=== PATIENT | female | born 1955 | race Caucasian/White ===

== ENCOUNTER 2019-09-11 10:53 | Outpatient (CLI) | payer MEDICARE ==
[~2019-09-11] VITALS: Ht 157.5 cm; Wt 89.1 kg
--- NOTE | ~2019-09-11 | HEMODYNAMI ---
PATIENT:ESTEFANI FITZGERALD MEDICAL RECORD: [id number] : 53 LOCATION:[facility] ADMISSION DATE: 09/11/19 Generatedon:09/11/201914:33 Patient name: ESTEFANI FITZGERALD Patient #: [id number] SSN: : 1955 Date of study: 09/11/2019 Page: Of Hemodynamic Procedure Report Patient Data Patient Demographics Procedure consent was obtained First Name: ESTEFANI Gender: Female Last Name: AMILCAR : 1955 Patient #: [id number] Age: 64 year(s) Race: Unknown Additional ID: [id number] Contact details [address]: [address] [place] [address] nw State: [place] City: [place] Zip code: [address] Past Medical History Allergies Allergen Reaction Date Comments Reported Other allergy 09/11/2019 NO KNOWN Admission Admission Data Admission Date: 09/11/2019 Admission Time: 10:53 Arrival Date: 09/11/2019 Arrival Time: 0:00 Insurance Payor: Medicare Height (in.): 61.81 BSA: 1.89 (m2) Height (cm.): 157 BMI: 36.11 (kg/m2) Weight (lbs.): 196.21 Weight (kg.): 89 Lab Results Lab Result Date: 09/11/2019 Lab Result Time: 0:00 Biochemistry Name Units Result Min Max BUN mg/dl 12 --(-*--)-- 7 18 Creatinine mg/dl 0.9 --(-*--)-- 0.6 1.3 eGFR ml/min 67.46562 *-(----)-- 90 120 NONAFRICAN CBC Name Units Result Min Max Hematocrit % 46.9 --(-*--)-- 42 54 Hemoglobin g/dl 15.6 --(--*-)-- 13.5 17.5 Procedure Procedure Types Cath Procedure Diagnostic Procedure [facility] w/Coronaries FFR/IVUS FFR Initial Sedation Charges Moderate Sedation up to 30 minutes Procedure Description Procedure Date Procedure Date: 09/11/2019 Procedure Start Time: 13:51 Procedure End Time: 14:31 Procedure Staff Name Function Jeevan Camacho MD Performing Physician Linda Diaz RT Monitor Cindy Bush RN Nurse Radha Thomas RT Scrub Procedure Data Cath Procedure Fluoroscopy Diagnostic fluoroscopy Total fluoroscopy Time: 7.6 time: 7.6 min min Diagnostic fluoroscopy Total fluoroscopy dose: dose: 1513 mGy 1513 mGy Contrast Material Contrast Material Type Amount (ml) Isovue 300 136 Entry Location Entry Primary Successful Side Size Upsize Upsize Entry Closure [place] ccessful Closure Location (Fr) 1 (Fr) 2 (Fr) Remarks Device Remarks Radial Right 6 Fr Mechanical artery Short Compression Estimated blood loss: 10 ml Diagnostic catheters Device Type Used For End Catheter Placement DIAGNOSTIC [place] 110cm 5 Procedure Fr catheter ([id number]) Procedure Complications No complications Procedure Medications Medication Administration Route Dosage 0.9% NaCl I.V. 100 ml/hr Oxygen etCO2 Nasal cannula 2 l/min Lidocaine 2% added to field 20 Heparin Flush Bag added to field 2 bags (1000units/500ml NS) Versed I.V. 2 mg Fentanyl I.V. 50 mcg Fentanyl I.V. 50 mcg Heparin Bolus I.V. 4000 units Hemodynamics Rest BSA: 1.89 (m2) O2 Consumption: Estimated: 179.38 (ml/min) O2 Consumption indexed : Estimated:94.91 (ml/min/m) Heart Rate: 74 (bpm) Pressure Samples Time Site Value (mmHg) Purpose Heart Use Rate(bpm) 13:54 LV 144/0,18 Snapshot 78 Gradients Valve Time Site Site Mean SEP/DFP Peak To Heart Use 1 2 (mmHg) (sec/min) Peak Rate (mmHg) (bpm) Aortic 13:55 LV AO 59 Snapshots Pre Cath Intra NCS Post Cath Vital Signs Time Heart Resp SPO2 etCO2 NIBP (mmHg) Rhythm Pain Sedation Rate (ipm) (%) (mmHg) Status Level (bpm) 13:33:30 72 13 97 48.6 171/125(152) NSR 0 (11) 10(A) , No pain 13:38:23 66 19 100 51.7 135/45(71) NSR 0 (11) 10(A) , No pain 13:42:58 72 21 97 52.4 108/40(67) NSR 0 (11) 10(A) , No pain 13:47:42 74 15 96 52.4 121/40(76) NSR 0 (11) 10(A) , No pain 13:52:33 70 14 97 23.2 105/38(65) NSR 0 (11) 10(A) , No pain 13:57:32 81 12 98 48.6 Measuring NSR 0 (11) 10(A) , No pain 13:58:34 83 17 98 46.4 145/51(92) NSR 0 (11) 10(A) , No pain 14:03:27 82 16 94 48.6 157/49(84) NSR 0 (11) 10(A) , No pain 14:08:26 80 16 96 38.1 Measuring NSR 0 (11) 10(A) , No pain 14:08:30 80 18 96 38.1 136/44(94) NSR 0 (11) 10(A) , No pain 14:13:29 77 20 97 49.4 Measuring NSR 0 (11) 10(A) , No pain 14:14:53 77 19 96 55.3 172/83(119) NSR 0 (11) 10(A) , No pain 14:24:04 74 36 96 51.6 Measuring NSR 0 (11) 10(A) , No pain 14:25:28 71 16 91 55.3 Time NSR 0 (11) 10(A) Exceeded , No pain 14:29:44 70 12 51.6 No Cuff NSR 0 (11) 10(A) , No pain Medications Time Medication Route Dose Verified Delivered Reason Notes Effectiveness by by 13:31:57 0.9% NaCl I.V. 100 Jeevan Cindy used for ml/hr Doug Bush software sales executive 13:32:08 Oxygen etCO2 2 Jeevan Cindy used for Nasal l/min Doug Bush procedure cannula RN 13:36:26 Lidocaine 2% added 20ml Jeevan Jeevan for local to vial Doug Camacho MD anesthetic field 13:36:31 Heparin Flush added 2 Jeevan Jeevan used for Bag to bags Doug Camacho MD procedure (1000units/500ml field NS) 13:47:06 Versed I.V. 2 mg Jeevan Cindy for sedation Doug Bush RN 13:48:14 Fentanyl I.V. 50 Jeevan Cindy for sedation mcg Doug Bush RN 13:54:22 Fentanyl I.V. 50 Jeevan Cindy for sedation mcg Doug Bush RN 14:03:32 Heparin Bolus I.V. 4000 Jeevan Cindy for verif ied units Doug Bush anticoagulation with Dr. RUTH Camacho Procedure Log Time Note 12:24:47 Informed consent obtained and on chart 12:30:29 Arrival Date: 09/11/2019 12:00:00 AM 12:33:49 Patient Height : 61.81 inches 12:33:54 Patient Weight : 196.21 lbs 12:34:04 Insurance Payor : Medicare 12:37:12 Lab Result : Hematocrit 46.9 % 12:37:12 Lab Result : eGFR NONAFRICAN 67.87580 ml/min 12:37:12 Lab Result : Hemoglobin 15.6 g/dl 12:37:12 Lab Result : BUN 12 mg/dl 12:37:12 Lab Result : Creatinine 0.9 mg/dl 12:40:05 Patient allergic to Other allergyNO KNOWN 12:40:21 Stress Test: yes; abnormal UNKNOWN 12:40:26 Risk of Mortality: 0.1 12:40:30 Risk of blood transfusion: 0.1 12:40:35 Risk of OBDULIA: 0.9 12:40:45 Lab results completed and on chart. 12:40:59 Procedure Status Elective Heart Cath (OP). 12:41:08 ACC Patient presents with Stable Angina CCS Anginal Class 2--Slight limitation of ordinary activity. 12:41:13 Time tracking: Regular hours (M-F 7:00 - 5:00) 12:50:10 H&P Date Dictated: 09/11/2019 H&P Addendum completed by physician on day of procedure. (MUST COMPLETE FOR ALL OUTPATIENTS), New H&P dictated by physician.. 13:11:23 Linda LOPEZ(R) (CV) sent for patient. Start room use. 13:22:32 Patient received from Pre/Post Procedure Room to CCL 1 Alert and oriented. Tansferred to table in Supine position. 13:22:34 Warm blankets applied, and maia hugger turned on for patient comfort. 13:22:34 Correct patient and procedure confirmed by team. 13:22:35 ECG and BP/O2 sat monitors applied to patient. 13:22:56 Plan of Care:Hemodynamics will remain stable., Cardiac rhythm will remain stable., Comfort level will be maintained., Respiratory function will remain adequate., Patient/ family verbilizes understanding of procedure., Procedure tolerated without complication., Recovers from procedure without complications.. 13:23:09 Patient NPO since Midnight. 13:23:12 Family in patients room. 13:23:13 Pre-procedure instructions explained to patient. 13:23:14 Pre-op teaching completed and patient verbalized understanding. 13:23:25 Is patient on blood thinner?Yes 13:23:30 ACC The patient was administered the following blood thiners within the last 24 hours: ACCPlavix 13:23:33 Patient diabetic? Yes. 13:23:40 If diabetic: On Metformin? Yes 13:24:01 If on Metformin: Last Dose? 09/09/2019 13:24:04 - 13:24:05 ----Pre-sedation anethsthesia assessment.---- 13:24:09 Previous problem with sedation/anesthesia? No ? 13:24:12 Snore? Yes 13:24:15 Sleep apnea? Yes 13:24:18 Deviated septum? Unknown 13:24:20 Opens mouth fully? Yes 13:24:23 Sticks out tongue? Yes 13:24:41 Airway obstruction? Yes COPD/SLEEP APNEA/SLEEPS WITH CPAP 13:24:46 Dentures? No ? 13:31:47 Vital chart was started 13:31:57 0.9% NaCl 100 ml/hr I.V. was administered by Cindy Bush RN; used for procedure; Verbal order read back and verified. 13:32:08 Oxygen 2 l/min etCO2 Nasal cannula was administered by Cindy Bush RN ; used for procedure; Verbal order read back and verified. 13:36:26 Lidocaine 2% 20ml vial added to field was administered by Jeevan Camacho MD ; for local anesthetic; Verbal order read back and verified. 13:36:31 Heparin Flush Bag (1000units/500ml NS) 2 bags added to field was administered by Jeevan Camacho MD; used for procedure; Verbal order read back and verified. 13:45:47 Pre procedure: right dorsailis pedis pulse 1+ Palpable, but thready & weak; easily obliterated 13:46:03 IV patent on arrival in left wrist with 0.9% NaCl at [facility]. 13:46:15 Right Radial & Right Groin area was prepped with chlora-prep and draped in sterile fashion 13:46:17 Alarms reviewed by R. N. 13:46:18 Sharps counted by scrub and verified by R.N. 13:46:22 Physician arrived 13:46:28 --------ALL STOP TIME OUT------ 13:46:30 Final Timeout: patient, procedure, and site verified with staff and physician. All members of the team are in agreement. 13:46:33 Right Radial & Right Groin site verified by team. 13:46:39 Fire Safety Assessment: A--An alcohol-based skin anteseptic being used preoperatively., C--Open oxygen or nitrous oxide is being used., D--An ESU, laser, or fiber-optic light is being used. 13:46:45 Physical assessment completed. ASA score P 2 - A patient with mild systemic disease as per Jeevan Camacho MD. 13:46:53 2) 60-89 Mildly reduced kidney function, and other findings (as for stage 1) point to kidney disease. 13:46:58 Maximum allowable contrast dose (3.7 X eGFR X 0.75)186 ml. 13:47:04 Sedation plan: IV Moderate Sedation Medication:Versed, Fentanyl 13:47:06 Versed 2 mg I.V. was administered by Cindy Bush RN; for sedation; Verbal order read back and verified. 13:47:09 Use device set Radial Dx or PCI 13:47:12 ACIST Syringe (43975) opened to sterile field. 13:47:14 Medline Cath Pack ([id number]) opened to sterile field. 13:47:16 Bag Decanter (2002) opened to sterile field. 13:47:18 ACIST Hand Control (26801) opened to sterile field. 13:47:18 ACIST Manifold (69489) opened to sterile field. 13:47:20 MBrace Wrist Support ([id number]) opened to sterile field. 13:47:20 NEEDLE Cook 21G 4cm Radial (D66488) opened to sterile field. 13:47:22 EMERALD Guide Wire (502-463) opened to sterile field. 13:47:23 SHEATH 6FR RAIN (0440137) opened to sterile field. 13:47:28 Zero performed for pressure channel P1 13:47:41 Baseline sample Acquired. 13:47:55 Rhythm: sinus rhythm 13:47:58 Full Disclosure recording started 13:48:14 Fentanyl 50 mcg I.V. was administered by Cindy Bush RN; for sedation ; Verbal order read back and verified. 13:51:06 Procedure started. 13:51:17 Local anesthetic to right radial artery with Lidocaine 2% by Jeevan Camacho MD.INITIAL ACCESS ONLY 13:53:18 A 6 Fr Short sheath was inserted into the Right Radial artery 13:53:53 A DIAGNOSTIC [place] 110cm 5 Fr catheter (886127) was advanced over the wire and used for Procedure. 13:54:22 Fentanyl 50 mcg I.V. was administered by Cindy Bush RN; for sedation ; Verbal order read back and verified. 13:54:26 Injector settings: Ml/sec: 5, Volume: 15, 13:54:33 LV gram done using AMOS 13:55:30 LV hemodynamics recorded. 13:55:37 EF : 55 % 13:55:52 LCA angiography performed. 13:55:56 Injector settings: Ml/sec: 3, Volume: 6, 13:58:25 RCA angiography performed. 13:58:29 Injector settings: Ml/sec: 3, Volume: 6, 14:01:15 Proceeding to intervention. 14:01:32 Reading Verrata Plus pressure wire (24756W) opened to sterile field. 14:01:53 TUBING High Pressure Extension Tubing (Doug) ([id number]) opened to sterile field. 14:02:47 FFR/IFR wire advanced. 14:03:32 Heparin Bolus 4000 units I.V. was administered by Cindy Bush RN; for anticoagulation; verified with Dr. Camacho Verbal order read back and verified. 14:04:52 Wire advanced across lesion. 14:05:15 Wire removed. damaged. 14:06:53 CATHETER AND IFR WIRE REMOVED. 14:08:30 GUIDE 6FR XBLAD 3.5 catheter ([id number]) opened to sterile field. 14:08:44 Reading Verrata Plus pressure wire (81078A) opened to sterile field. 14:08:56 6 Fr XBLAD3.5 guide catheter was inserted over the wire 14:11:25 FFR/IFR wire advanced. 14:11:28 Wire advanced across lesion. 14:13:01 pCirc lesion measured at 1.0 with IFR 14:13:45 THE IFR WIRE IS REDIRECTED INTO THE LAD. 14:16:56 dLAD lesion measured at 0.87 with IFR 14:20:33 Wire removed. 14:20:35 Guide catheter removed. 14:20:51 Sheath removed intact; hemostasis achieved with Mechanical Compression to the Right Radial artery. 14:20:53 ZEPHYR LARGE TR BAND (668075) opened to sterile field. 14:20:53 Procedure ended.(Physican Out) 14:21:13 Contrast amount:Isovue 300 136ml. 14:21:23 Fluoroscopy time 07.60 minutes. 14:21:30 Fluoroscopy dose: 1513 mGy 14:21:30 Flurop Dose total: 1513 14:21:40 Dose Area Product 33215 mGy/cm. 14:22:25 Maximum allowable dose exceeded? No. 14:22:26 Sharps counted by scrub and verified by R.N. 14:22:30 [place] band inflated with 10cc of air. 14:22:32 Insertion/operative site no bleeding no hematoma. 14:22:39 Post right radial artery:stable 14:22:50 Post-procedure physical assessment completed. ASA score P 2 - A patient with mild systemic disease as per Jeevan Camacho MD. 14:22:55 Post procedure rhythm: unchanged. 14:22:59 Estimated blood loss: 10 ml 14:23:07 Post procedure instruction explained to patient.Patient verbalizes understanding. 14:23:08 Patient needs reinforcement of post procedure teaching. 14:23:14 ACT drawn and resulted at 206 seconds. (normal therapeutic range 180-24 0 seconds). 14:25:33 Procedure type changed to Cath procedure, Diagnostic procedure, LHC, LH C w/Coronaries, FFR/IVUS, FFR Initial, Sedation Charges, Moderate Sedation up to 30 minutes 14:25:36 Procedure and supply charges have been captured, reviewed, submitted an d are correct. 14:29:06 Procedure Complication : No complications 14:29:11 Vital chart was stopped 14:31:15 [facility] Findings: MVD- MD will discuss options w/ pt 14:31:18 Operative report dictated upon procedure completion. 14:31:19 See physician's report for complete and final results. 14:31:22 Report given to Pre/Post Procedure Room. 14:31:27 Patient transfered to Pre/Post Procedure Room with Stretcher. 14:31:30 Procedure ended. 14:31:30 Full Disclosure recording stopped 14:31:39 End room use (Document Last) Device Usage Item Name Manufacture Quantity Catalog Hospital Part Current Mini mal Lot# / Number Charge Number Stock Stock Serial# Code ACIST Acist 1 02516 762160 920983 612134 20 Syringe Medical (91240) Systems Inc Medline Medline 1 [id number] 971772 01795 301687 5 Cath Pack ([id number]) Bag Microtek 1 2001S 225608 86263 249668 5 Decanter Medical Inc. () ACIST Hand Acist 1 45436 181307 418492 466697 5 Control Medical (53415) Systems Inc ACIST Acist 1 40971 758890 306762 820942 5 Manifold Medical (25625) Systems Inc MBrace Advanced 1 140-0250-00 068365 05837 984923 5 Wrist Vascular Support Dynamics ([id number]) NEEDLE Cook Cook Medical 1 [id number] 961326 173190 090473 5 21G 4cm Radial (G97794) EMERALD Cardinal 1 502-455 302070 646244 939035 5 Guide Wire Health (502-455) SHEATH 6FR Cardinal 1 [id number] 016563 4604470 435247 5 [facility] (4081919) DIAGNOSTIC Terumo 1 40-1514 004822 633615 338280 5 [place] 110cm 5 Fr catheter (392941) Reading Reading 2 [id number] 831577 610290682 447894 5 Verrata Plus pressure wire (50696M) TUBING High Merit 1 [id number] 373535 90522 348014 10 Pressure Medical Extension Tubing (Camacho) ([id number]) GUIDE 6FR Cardinal 1 [id number] 622541 709741 140389 10 XBLAD 3.5 Health catheter (22182938) ZEPHYR Cardinal 1 009603 756763 1808627 460620 5 LARGE TR Health BAND (363989) Signature Audit Railroad Stage Time Signature Unsigned Intra-Procedure 09/11/2019 Linda 2:32:14 PM Emily RT(R) (CV) Intra-Procedure 09/11/2019 Cindy Bush 2:32:39 PM RN Intra-Procedure 09/11/2019 Jeevan Camacho MD 2:33:28 PM [facility] [address] [place] [address]
[2019-09-11] MEDS ORDERED: XANAX1 MG PO (11:36)
[2019-09-11] MEDS ORDERED: ULTRAM50 MG PO (11:36)
[2019-09-11] MEDS ORDERED: ZANAFLEX4 MG PO (11:37)
[2019-09-11] MEDS ORDERED: HCTZ25 MG PO (11:38)
[2019-09-11] MEDS ORDERED: SPIRIVA18 MCG INH (11:38)
[2019-09-11] MEDS ORDERED: NITROQUICK0.4 MG SL (11:39)
[2019-09-11] MEDS ORDERED: PROAIR HFA8.5 G1 INH (11:39)
[2019-09-11] MEDS ORDERED: DIOVAN160 MG PO (11:42)
[2019-09-11] MEDS ORDERED: LIVALO4 MG PO (11:43)
[2019-09-11] MEDS ORDERED: K-TAB10 MEQ PO (11:44)
[2019-09-11] MEDS ORDERED: BUSPAR 15 MG TA15 MG PO (11:44)
[2019-09-11] MEDS ORDERED: PROZAC40 MG PO (11:44)
[2019-09-11] MEDS ORDERED: GLUCOPHAGE500 MG PO (11:45)
[2019-09-11] MEDS ORDERED: PLAVIX75 MG PO (11:45)
[2019-09-11] MEDS ORDERED: PROTONIX40 MG PO (11:45)
[2019-09-11] MEDS ORDERED: METOPROLOL TART50 MG PO (11:46)
[2019-09-11 11:57] VITALS: BP 152/61; Ht 157.5 cm; Wt 89.1 kg
[2019-09-11 12:18] LABS: BASOPHILS 0.3 % (0-2); EOSINOPHILS 2.6 % (0-7); HEMATOCRIT 46.9 % (36.0-48.0); HEMOGLOBIN 15.6 g/dL (12-16); IMMATURE GRANULOCYTES 0.3 % (0-5); LYMPHOCYTES 22.7 % (15-50); MCH 31.3 pg (26.0-34.0); MCHC 33.3 g/dL (31.0-37.0); MCV 94.2 fL (80.0-100.0); MONOCYTES 9.5 % (2-11); NEUTROPHILS 64.6 % (40-80); PLATELET COUNT 217 10x3/uL (130-400); RBC 4.98 10x6/uL (4.00-5.40); RDW 14.7 % (11.5-14.5); WBC 7.2 10x3/uL (4.8-10.8)
[2019-09-11 12:27] LABS: ANION GAP 17.1 mmol/L (8-16); CALCIUM 9.7 mg/dL (8.5-10.1); CARBON DIOXIDE 29.8 mmol/L (21.0-32.0); CHOL - HDL RATIO 3.2 ratio (2.3-4.1); CREATININE - SERUM 0.9 mg/dL (0.6-1.3); LDL-HDL RATIO 1.6 ratio (1.5-3.5); POTASSIUM - SERUM 3.9 mmol/L (3.5-5.1)
--- NOTE | 2019-09-11 14:40 | NUR ---
PT REC'D TO ROOM 6 VIA STRETCHER FROM INDUSTRIAL DESIGNER. MONITORS ESTAB. SON AT BS. SEE NANOTECHNOLOGIST, ALARMS ON AND C/L IN REACH.
--- NOTE | 2019-09-11 14:55 | NUR ---
R WRIST Z BAND SITE C/D/I, NO S/S BLEEDING OR HEMATOMA. R ARM/HAND WARM WITH PALP PULSES AND BRISK CAP REFILL. VSS. PT DENIES NEEDS. ALARMS ON AND C/L IN REACH.
--- NOTE | 2019-09-11 15:15 | NUR ---
DR RANDLE IN TO UPDATE PT AND HER SON.
--- NOTE | 2019-09-11 15:25 | NUR ---
PT SITTING UP IN BED, EATING. VSS. R WRIST SITE C/D/I, NO S/S BLEEDING OR SWELLING.
--- NOTE | 2019-09-11 15:40 | NUR ---
R WRIST SITE C/D/I, NO S/S BLEEDING OR SWELLING. VSS. PT RESTING QUIETLY. C/L IN REACH.
--- NOTE | 2019-09-11 16:00 | NUR ---
5 CC AIR REMOVED FROM Z BAND, NO S/S BLEEDING OR SWELLING, PULSES PALP. BRISK CAP REFILL. VSS, C/L IN REACH.
--- NOTE | 2019-09-11 16:10 | NUR ---
R WRIST SITE C/D/I, NO S/S BLEEDING OR SWELLING. VSS, C/L IN REACH.
--- NOTE | 2019-09-11 16:40 | NUR ---
5 CC AIR REMOVED FROM Z BAND, NO S/S BLEEDING OR HEMATOMA. VSS. WILL CONT CLOSE MONITORING.
--- NOTE | 2019-09-11 17:00 | NUR ---
ALL AIR REMOVED FROM Z BAND, NO S/S BLEEDING OR SWELLING. R HAND WARM, PULSES PALP. WILL CONT CLOSE MONITORING.
--- NOTE | 2019-09-11 17:15 | NUR ---
R WRIST SITE C/D/I, NO S/S BLEEDING OR HEMATOMA. PIV D/C'D INTACT, DSG APPLIED. PT ALLOWED TO GET DRESSED AND GO TO BR INDEPENDENTLY.
--- NOTE | 2019-09-11 17:57 | NUR ---
ALL DISCHARGE INSTRUCTIONS REVIEWED WITH PT AND SON, INCLUDING RESTRICTIONS, MEDS AND F/U APPT. Z BAND OFF AND DSG APPLIED, ARM BOARD IN PLACE. PT D/C'D VIA TO PRIVATE VEHICLE. PT HAS ALL PAPERWORK AND BELONGINGS.
== END 2019-09-11 17:30 | disposition home or self-care (01) ==
LOC: D.CATH 10:53
PROVIDERS: ATTEND Internal Medicine Cardiovascular Disease
DX: I25.119 Atherosclerotic heart disease of native coronary artery with unspecified angina pectoris (principal); R94.39 Abnormal result of other cardiovascular function study; J44.9 Chronic obstructive pulmonary disease, unspecified; E11.9 Type 2 diabetes mellitus without complications; I10 Essential (primary) hypertension; E78.5 Hyperlipidemia, unspecified; Z79.84 Long term (current) use of oral hypoglycemic drugs

== ENCOUNTER 2019-09-27 07:44 | Day surgery (SDC) | payer MEDICARE ==
[~2019-09-27] VITALS: Ht 157.5 cm; Wt 132.0 kg
--- NOTE | ~2019-09-27 | HEMODYNAMI ---
PATIENT:ESTEFANI FITZGERALD MEDICAL RECORD: [id number] : 53 LOCATION:[facility] ADMISSION DATE: 09/27/19 Generatedon:09/27/20199:37 Patient name: ESTEFANI FITZGERALD Patient #: [id number] SSN: [id number] : 1955 Date of study: 09/27/2019 Page: Of Hemodynamic Procedure Report Patient Data Patient Demographics Procedure consent was obtained First Name: ESTEFANI Gender: Female Last Name: AMILCAR : 1955 Middle Initial: ALEXANDRA Age: 64 year(s) Patient #: [id number] Race: Unknown SSN: [id number] Additional ID: [id number] Contact details [address]: [address] [place] [address] State: [place] City: [place] Zip code: [address] Past Medical History Allergies Allergen Reaction Date Comments Reported Other allergy 09/11/2019 NO KNOWN Admission Admission Data Admission Date: 09/27/2019 Admission Time: 7:44 Arrival Date: 09/27/2019 Arrival Time: 0:00 Height (in.): 61.81 BSA: 2.24 (m2) Height (cm.): 157 BMI: 53.55 (kg/m2) Weight (lbs.): 291.01 Weight (kg.): 132 Lab Results Lab Result Date: 09/27/2019 Lab Result Time: 0:00 Biochemistry Name Units Result Min Max BUN mg/dl 16 --(---*)-- 7 18 Creatinine mg/dl 1 --(--*-)-- 0.6 1.3 eGFR ml/min 59 *-(----)-- 90 120 NONAFRICAN CBC Name Units Result Min Max Hematocrit % 47 --(-*--)-- 42 54 Hemoglobin g/dl 15.8 --(--*-)-- 13.5 17.5 Procedure Procedure Types Cath Procedure Diagnostic Procedure Sedation Charges Moderate Sedation up to 15 minutes PCI Procedure Coronary Stent Coronary Stent Initial Hemochron ACT Test Procedure Description Procedure Date Procedure Date: 09/27/2019 Procedure Start Time: 9:09 Procedure End Time: 9:35 Procedure Staff Name Function Jeevan Camacho MD Performing Physician Linda Diaz RT Monitor Cindy Bush RN Nurse Radha Thomas RT Scrub Indication CAD Procedure Data Cath Procedure Fluoroscopy Diagnostic fluoroscopy Total fluoroscopy Time: 3.5 time: 3.5 min min Diagnostic fluoroscopy Total fluoroscopy dose: 597 dose: 597 mGy mGy Contrast Material Contrast Material Type Amount (ml) Isovue 300 44 Entry Location Entry Primary Successful Side Size Upsize Upsize Entry Closure [place] ccessful Closure Location (Fr) 1 (Fr) 2 (Fr) Remarks Device Remarks Femoral Right 5 Fr Manual vein Compression Femoral Right 6 Fr Exoseal artery Short Estimated blood loss: 10 ml Procedure Complications No complications Procedure Medications Medication Administration Route Dosage Oxygen etCO2 Nasal cannula 2 l/min Lidocaine 2% added to field 20 Heparin Flush Bag added to field 2 bags (1000units/500ml NS) 0.9% NaCl I.V. 100 ml/hr Versed I.V. 2 mg Fentanyl I.V. 50 mcg Fentanyl I.V. 50 mcg Heparin Bolus I.V. 39783 units Hemodynamics Rest BSA: 2.24 (m2) HGB: 15.8 (g/dl) O2 Consumption: Estimated: 210.3 (ml/min) O2 Con sumption indexed: Estimated:93.88 (ml/min/m) Heart Rate: 71 (bpm) Snapshots Pre Cath Intra NCS Post Cath Vital Signs Time Heart Resp SPO2 etCO2 NIBP (mmHg) Rhythm Pain Sedation Rate (ipm) (%) (mmHg) Status Level (bpm) 8:59:51 69 18 96 49.4 155/106(145) NSR 0 (11) 10(A) , No pain 9:04:50 74 13 97 31.4 Measuring NSR 0 (11) 10(A) , No pain 9:05:15 71 14 98 32.9 173/93(128) NSR 0 (11) 10(A) , No pain 9:09:39 77 15 97 29.2 167/108(141) NSR 0 (11) 10(A) , No pain 9:14:38 81 12 96 37.4 Measuring NSR 0 (11) 10(A) , No pain 9:15:01 80 12 97 38.1 179/108(125) NSR 0 (11) 10(A) , No pain 9:19:27 77 13 97 44.1 186/94(147) NSR 0 (11) 9(A) , No pain 9:23:55 77 12 97 44.1 156/105(128) NSR 0 (11) 9(A) , No pain 9:28:13 80 15 97 50.8 172/90(130) NSR 0 (11) 10(A) , No pain 9:32:40 74 14 96 50.1 188/86(124) NSR 0 (11) 10(A) , No pain Medications Time Medication Route Dose Verified Delivered Reason Notes Effectiveness by by 8:55:47 Oxygen etCO2 2 Jeevan Cindy used for Nasal l/min Doug Bush procedure cannula RN 8:55:54 Lidocaine 2% added 20ml Jeevan Jeevan for local to vial Doug Camacho MD anesthetic field 8:56:00 Heparin Flush added 2 Jeevan Jeevan used for Bag to bags Doug Camacho MD procedure (1000units/500ml field NS) 8:56:09 0.9% NaCl I.V. 100 Jeevan Cindy Per physician ml/hr Doug Bush RN 9:10:43 Versed I.V. 2 mg Jeevan Cindy for sedation Doug Bush RN 9:10:56 Fentanyl I.V. 50 Jeevan Cindy for sedation mcg Doug Bush RN 9:16:21 Fentanyl I.V. 50 Jeevan Cindy for sedation mcg Doug Bush RN 9:22:57 Heparin Bolus I.V. 30448 Jeevan Cindy for verifi ed units Doug Bush anticoagulation with Dr. RUTH Camacho Procedure Log Time Note 8:21:44 Informed consent obtained and on chart 8:22:29 Arrival Date: 09/27/2019 12:00:00 AM 8:43:47 Indication : CAD 8:43:56 Procedure Status PCI. 8:44:00 Radha LOPEZ(R) sent for patient. Start room use. 8:44:02 Time tracking: Regular hours (M-F 7:00 - 5:00) 8:44:10 Plan of Care:Hemodynamics will remain stable., Cardiac rhythm will remain stable., Comfort level will be maintained., Respiratory function will remain adequate., Patient/ family verbilizes understanding of procedure., Procedure tolerated without complication., Recovers from procedure without complications.. 8:49:04 Patient received from Pre/Post Procedure Room to CCL 1 Alert and oriented. Tansferred to table in Supine position. 8:49:21 Was the patient premedicated? Yes 8:49:29 Is patient on blood thinner?Yes 8:49:40 ACC The patient was administered the following blood thiners within the last 24 hours: ACCPlavix 8:49:43 Patient diabetic? Yes. 8:49:46 If diabetic: On Metformin? Yes 8:49:58 If on Metformin: Last Dose? 09/24/2019 8:50:01 ----Pre-sedation anethsthesia assessment.---- 8:50:08 Previous problem with sedation/anesthesia? No ? 8:50:11 Snore? Yes 8:50:23 Sleep apnea? Yes 8:50:26 Deviated septum? Unknown 8:50:31 Opens mouth fully? Yes 8:50:34 Sticks out tongue? Yes 8:50:50 Airway obstruction? Yes COPD/SLEEPS WITH CPAP 8:50:55 Dentures? No ? 8:51:26 Warm blankets applied, and maia hugger turned on for patient comfort. 8:51:27 Correct patient and procedure confirmed by team. 8:51:27 ECG and BP/O2 sat monitors applied to patient. 8:51:28 Vital chart was started 8:51:40 H&P Date Dictated: 09/27/2019 H&P Addendum completed by physician on day of procedure. (MUST COMPLETE FOR ALL OUTPATIENTS), New H&P dictated by physician.. 8:51:42 Pre-procedure instructions explained to patient. 8:51:43 Pre-op teaching completed and patient verbalized understanding. 8:51:45 Family in patients room. 8:51:48 Patient NPO since Midnight. 8:55:47 Oxygen 2 l/min etCO2 Nasal cannula was administered by Cindy Bush RN; used for procedure; Verbal order read back and verified. 8:55:54 Lidocaine 2% 20ml vial added to field was administered by Jeevan Camacho MD; for local anesthetic; Verbal order read back and verified. 8:56:00 Heparin Flush Bag (1000units/500ml NS) 2 bags added to field was administered by Jeevan Camacho MD; used for procedure; Verbal order read back and verified. 8:56:09 0.9% NaCl 100 ml/hr I.V. was administered by Cindy Bush RN; Per physician; Verbal order read back and verified. 8:58:37 Baseline sample Acquired. 8:58:53 Rhythm: sinus rhythm 8:58:58 Baseline sample Acquired. 9:00:35 Full Disclosure recording started 9:00:46 Pre procedure: right dorsailis pedis pulse 1+ Palpable, but thready & weak; easily obliterated 9:01:02 IV patent on arrival in right antecubital with 0.9% NaCl at O. 9:01:40 Lab Result : BUN 16 mg/dl 9::40 Lab Result : Creatinine 1 mg/dl 9:01:40 Lab Result : eGFR NONAFRICAN 59 ml/min 9:01:40 Lab Result : Hemoglobin 15.8 g/dl 9:01:40 Lab Result : Hematocrit 47 % 9:01:46 Lab results completed and on chart. 9:01:53 Right groin area was prepped with chlora-prep and draped in sterile fashion 9:01:55 Alarms reviewed by R. N. 9:01:56 Sharps counted by scrub and verified by R.N. 9:02:07 Use device set Femoral Dx 9:02:10 ACIST Syringe (55226) opened to sterile field. 9:02:10 Bag Decanter () opened to sterile field. 9:02:14 ACIST Hand Control (85069) opened to sterile field. 9:02:15 ACIST Manifold (67945) opened to sterile field. 9:02:18 Tegaderm 4 x 4 (1626W) opened to sterile field. 9:02:22 EMERALD Guide Wire (746-936) opened to sterile field. 9:02:27 Medline Cath Pack ([id number]) opened to sterile field. 9:02:39 Use device set CAMACHO PCI 9:02:53 SHEATH 6FR [place] (OBX085) opened to sterile field. 9:03:07 INFLATOR Merit BasixCompak (HN8658) opened to sterile field. 9:03:08 BMW 300cm Aroda 2 J wire ([id number]) opened to sterile field. 9:03:13 TUBING High Pressure Extension Tubing (Doug) ([id number]) opened to sterile field. 9:08:58 Physician arrived 9:08:59 --------ALL STOP TIME OUT------ 9:09:00 Final Timeout: patient, procedure, and site verified with staff and physician. All members of the team are in agreement. 9:09:02 Right groin site verified by team. 9:09:07 Fire Safety Assessment: A--An alcohol-based skin anteseptic being used preoperatively., C--Open oxygen or nitrous oxide is being used., D--An ESU, laser, or fiber-optic light is being used. 9:09:11 Physical assessment completed. ASA score P 2 - A patient with mild systemic disease as per Jeevan Camacho MD. 9:09:16 3a) 45-59 Moderately reduced kidney function. 9:09:20 Maximum allowable contrast dose (3.7 X eGFR X 0.75)163 ml. 9:09:26 Sedation plan: IV Moderate Sedation Medication:Versed, Fentanyl 9:09:32 Procedure started. 9:09:38 Local anesthetic to right femoral artery with Lidocaine 2% by Jeevan Camacho MD.INITIAL ACCESS ONLY 9:10:22 Patient Height : 61.81 inches 9:10:26 Patient Weight : 291.01 lbs 9:10:43 Versed 2 mg I.V. was administered by Cindy Bush RN; for sedation; Verbal order read back and verified. 9:10:56 Fentanyl 50 mcg I.V. was administered by Cindy Bush RN; for sedation; Verbal order read back and verified. 9:12:55 Zero performed for pressure channel P1 9:14:14 Pre PCI Site: [place] pRCA has 80% stenosis. 9:14:22 ACC Pre-intervention CARLY Flow is 3. 9:15:41 SHEATH 5FR [place] (DOB680) opened to sterile field. 9:16:05 A 5 Fr sheath was inserted into the Right Femoral vein 9:16:21 Fentanyl 50 mcg I.V. was administered by Cindy Bush RN; for sedation; Verbal order read back and verified. 9:17:24 Risk of Mortality: 0.2 9:17:29 Risk of blood transfusion: 0.5 9:17:35 Risk of OBDULIA: 8.6 9:19:59 A 6 Fr Short sheath was inserted into the Right Femoral artery 9:20:06 GUIDE 6FR JR 4.0 catheter (SH5GY37) opened to sterile field. 9:20:17 6 Fr JR4 guide catheter was inserted over the wire 9:21:32 RCA angiography performed. 9:21:37 Injector settings: Ml/sec: 3, Volume: 6, 9:22:57 Heparin Bolus 93076 units I.V. was administered by Cindy Bush RN; for anticoagulation; verified with Dr. Camacho Verbal order read back and verified. 9:23:00 WMG205 wire advanced. 9:24:27 Wire advanced across lesion. 9:26:51 Place stent Inflation Number: 1 A STEPHANIE RX 3.0 x 15 stent ([id number]) was prepped and advanced across the Prox RCA . The stent was deployed at 15 SANGEETHA for 0:16 (min:sec) . 9:27:42 Stent catheter was removed intact over wire. 9:27:43 Wire removed. 9:27:45 Guide catheter removed. 9:27:48 EXOSEAL 6Fr (EX600) opened to sterile field. 9:28:01 Contrast amount:Isovue 300 44ml. 9:28:05 Maximum allowable dose exceeded? No. 9:28:17 Fluoroscopy time 03.50 minutes. 9:28:23 Flurop Dose total: 597 9:28:23 Fluoroscopy dose: 597 mGy 9:28:31 Dose Area Product 72534 mGy/cm. 9:28:48 Sheath removed intact; hemostasis achieved with Exoseal to the Right Femoral artery. 9:29:12 Sheath removed intact; hemostasis achieved with Manual Compression to the Right Femoral vein. 9:29:17 Sharps counted by scrub and verified by R.N. 9:29:19 Insertion/operative site no bleeding no hematoma. 9:29:25 Post-op/insertion site Right Femoral artery dressed using a 4 x 4 and Tegaderm. 9:29:33 Post-op/insertion site Right Femoral vein dressed using a 4 x 4 and Tegaderm. 9:29:49 Procedure ended.(Physican Out) 9:30:25 Post-procedure physical assessment completed. ASA score P 2 - A patient with mild systemic disease as per Jeevan Camacho MD. 9:30:56 Post procedure rhythm: unchanged. 9:31:01 Estimated blood loss: 10 ml 9:31:04 Post procedure instruction explained to patient.Patient verbalizes understanding. 9:31:05 Patient needs reinforcement of post procedure teaching. 9:31:27 Procedure type changed to Cath procedure, Diagnostic procedure, Sedation Charges, Moderate Sedation up to 15 minutes, PCI procedure, Coronary Stent, Coronary Stent Initial, Hemochron ACT Test 9:31:30 Procedure and supply charges have been captured, reviewed, submitted and are correct. 9:33:07 Procedure Complication : No complications 9:33:13 Vital chart was stopped 9:33:18 [facility] Findings: MVD- PCI performed (see procedure note) 9:33:23 Operative report dictated upon procedure completion. 9:33:24 See physician's report for complete and final results. 9:33:27 Report given to Pre/Post Procedure Room. 9:33:32 Patient transfered to Pre/Post Procedure Room with Stretcher. 9:35:05 ACT drawn and resulted at 321 seconds. (normal therapeutic range 180-240 seconds). 9:35:37 Procedure ended. 9:35:37 Full Disclosure recording stopped 9:35:44 ACC-PCI Only Patient was given prescriptions, or instructed by Jeevan Camacho MD to start/continue the following medications upon discharge: Plavix 9:35:47 End room use (Document Last) Intervention Summary Intervention Notes Time ActionType Lesion and Equipment Used Action# Pressure Duration Attributes 9:26:[address] Place stent Prox RCA STEPHANIE RX 3.0 x 1 15 00:16 15 stent ([id number]) Device Usage Item Name Manufacture Quantity Catalog Hospital Part Current [facility] Lot# / Number Charge Number Stock Stock Serial# Code ACIST Syringe Acist 1 96090 347286 868769 145342 20 (85626) [employer] Systems Inc Bag Decanter Microtek 1 271925 66292 958806 5 () Medical Inc. ACIST Hand Acist 1 85370 757212 591278 641207 5 Control Medical (79551) Systems Inc ACIST Manifold Acist 1 49142 618096 636553 679520 5 (79451) Medical Systems Inc Tegaderm 4 x 4 3M 1 1626W 026902 084178 661600 5 (1626W) EMERALD Guide Cardinal 1 502-455 060881 503340 438787 5 Wire (502-455) Health Medline Cath Medline 1 [id number] 668317 76713 597138 5 Pack ([id number]) SHEATH 6FR Terumo 1 HSQ530 554147 734881 712775 40 [place] (FHC860) INFLATOR Merit Merit 1 DU5680 688571 639458 729810 15 [employer] Medical (XI9671) BMW 300cm Epstein 1 [id number] 740641 164834 196766 5 Aroda 2 J Vascular wire ([id number]) TUBING High Merit 1 [id number] 202882 13787 444208 10 Pressure Medical Extension Tubing (Camacho) ([id number]) SHEATH 5FR Terumo 1 LOT334 391970 042264 070044 5 [place] (TQX403) GUIDE 6FR JR Medtronic 1 [id number] 390839 44555 872342 1 4.0 catheter (IU2SV86) STEPHANIE RX 3.0 x Medtronic 1 [id number] 936605 9672788 345798 5 [id number] 15 stent ([id number]) EXOSEAL 6Fr Cardinal 1 EX600 136195 675414 783741 10 (EX600) Health Signature Audit [place] Stage Time Signature Unsigned Intra-Procedure 09/27/2019 Linda 9:36:10 AM Emily RT(R) (CV) Intra-Procedure 09/27/2019 Cindy Bush 9:36:44 AM RN Intra-Procedure 09/27/2019 Jeevan Camacho MD 9:37:53 AM [facility] [address] [facility] [address]
[~2019-09-27 07:44] MED LIST: BUSPAR 15 MG TA15 MG PO; DIOVAN160 MG PO; GLUCOPHAGE500 MG PO; HCTZ25 MG PO; K-TAB10 MEQ PO; LIVALO4 MG PO; METOPROLOL TART50 MG PO; NITROQUICK0.4 MG SL; PLAVIX75 MG PO; PROAIR HFA8.5 G1 INH; PROTONIX40 MG PO; PROZAC40 MG PO; SPIRIVA18 MCG INH; ULTRAM50 MG PO; XANAX1 MG PO; ZANAFLEX4 MG PO
[2019-09-27 08:30] VITALS: BP 143/72; Ht 157.5 cm; Wt 132.0 kg
[2019-09-27 08:38] LABS: BASOPHILS 0.2 % (0-2); HEMOGLOBIN 15.8 g/dL (12-16); IMMATURE GRANULOCYTES 0.1 % (0-5); LYMPHOCYTES 24.8 % (15-50); MCH 31.2 pg (26.0-34.0); MCHC 33.6 g/dL (31.0-37.0); MCV 92.7 fL (80.0-100.0); MEAN PLATELET VOLUME 9.1 fL (7.4-10.4); MONOCYTES 9.8 % (2-11); NEUTROPHILS 63.1 % (40-80); PLATELET COUNT 229 10x3/uL (130-400); RBC 5.07 10x6/uL (4.00-5.40); RDW 14.8 % (11.5-14.5); WBC 9.1 10x3/uL (4.8-10.8)
[2019-09-27] MEDS ORDERED: BC POWDER PO (08:44)
[2019-09-27 08:45] LABS: ANION GAP 10.4 mmol/L (8-16); CALCIUM 9.9 mg/dL (8.5-10.1); CARBON DIOXIDE 31.1 mmol/L (21.0-32.0); POTASSIUM - SERUM 3.5 mmol/L (3.5-5.1)
--- NOTE | 2019-09-27 09:50 | NUR ---
PT ARRIVED BY STRETCHER. PLACED ON MONITORS. ASSESSMENT COMPLETED. VSS AT THIS TIME. CALL LIGHT WITHIN REACH. FAMILY AT BEDSIDE.
--- NOTE | 2019-09-27 10:05 | NUR ---
PT RESTING COMFORTABLY. VSS AT THIS TIME. CALL LIGHT WITHIN REACH. RIGHT GROIN DRESSING C/D/I. NO S/S OF HEMATOMA NOTED. NO NEEDS AT THIS TIME.
--- NOTE | 2019-09-27 10:38 | NUR ---
PT RESTING COMFORTABLY. VSS AT THIS TIME. CALL LIGHT WITHIN REACH. RIGHT GROIN DRESSING C/D/I. NO S/S OF HEMATOMA NOTED.
--- NOTE | 2019-09-27 11:00 | NUR ---
RIGHT GROIN DRESSING C/D/I. NO S/S OF HEMATOMA NOTED. CALL LIGHT WITHIN REACH. VSS. NO NEEDS AT THIS TIME. RESTING COMFORTABLY.
--- NOTE | 2019-09-27 11:30 | NUR ---
RIGHT GROIN DRESSING C/D/I. NO S/S OF HEMATOMA NOTED. CALL LIGHT WITHIN REACH. FAMILY AT BEDSIDE. PT DENIES NAUSEA AT THIS TIME. TOLERATING SIPS OF WATER.
--- NOTE | 2019-09-27 12:30 | NUR ---
RIGHT GROIN DRESSING C/D/I. NO S/S OF HEMATOMA NOTED. PT'S HEAD OF BED INC TO 30 DEGREES. TOLERATED WELL. DENIES NAUSEA. SET UP WITH SANDWICH TRAY AND DRINK AT THIS TIME. CALL LIGHT WITHIN REACH.
--- NOTE | 2019-09-27 13:02 | NUR ---
RIGHT GROIN DRESSING C/D/I. NO S/S OF HEMATOMA NOTED. CALL LIGHT WITHIN REACH. VSS. PIV D/C'D WITH CATH TIP INTACT. TOLERATED WELL. PT INSTRUCTED TO GET UP AND DRESSED AT THIS TIME. NO ASSISTANCE NEEDED.
--- NOTE | 2019-09-27 13:12 | NUR ---
DISCUSSED DISCHARGE INSTRUCTIONS WITH PT AND PT'S FAMILY. THEY VOICED UNDERSTANDING. PT AMBULATED TO RESTROOM AND VOIDED WITHOUT DIFFICULTY. STEADY GAIT NOTED WITH CANE USE.
--- NOTE | 2019-09-27 13:30 | NUR ---
PT TAKEN DOWN TO VEHICLE BY WHEELCHAIR. NO S/S OF DISTRESS NOTED. ALL BELONGINGS AND PAPERWORK IN HAND. RIGHT GROIN DRESSING C/D/I. NO S/S OF HEMATOMA NOTED.
== END 2019-09-27 13:30 | disposition home or self-care (01) ==
LOC: D.CATH 07:44
PROVIDERS: ATTEND Internal Medicine Cardiovascular Disease
DX: I25.110 Atherosclerotic heart disease of native coronary artery with unstable angina pectoris (principal); R94.39 Abnormal result of other cardiovascular function study